=== PATIENT | male | born 1950 | race Caucasian/White ===

== ENCOUNTER → 2024-02-11 10:25 | Outpatient (REF) | payer OTHER, SELFPAY | LOC: RCS 10:25 | PROVIDERS: ATTENDING PHYSICIAN Internal Medicine Cardiovascular Disease; FAMILY PHYSICIAN Family Medicine | DX: I25.10 Atherosclerotic heart disease of native coronary artery without angina pectoris (principal); R00.2 Palpitations; I45.2 Bifascicular block; E78.2 Mixed hyperlipidemia | CPT/HCPCS: 93225; 93226 ==